=== PATIENT | male | born 1950 | race African-American/Black ===

== ENCOUNTER → 2019-10-23 | Day surgery (SDC) | payer MEDICARE, OTHER ==
--- NOTE | 2019-10-18 14:41 | Opthalmology H&P ---
Ophthalmology H&P H&P Chief Complaint: decreased vision in left eye HPI Vision Affects Ability to: read, manage personal affairs HPI Narrative Blurry vision Exam Visual Acuity: OD 20/50 OS 20/80 Tension: OD 14 OS 14 Eye Exam: normal OU: external exam, palpebral fissure-width, marginal reflex distance, levator function, corneas, anterior chambers, fundus exam; findings: lens - +3 Cortical Cataracts OU Assessment/Plan Treatment Plan: cataract extraction w/ lens implant Goals of Treatment: improvement of vision, enhance quality of life Attestation Attestation The risks and benefits of the surgery as well as alternative procedures were explained to the patient in detail. Devan Street MD Oct 18, 2019 14:41
--- NOTE | 2019-10-18 14:48 | Pre-Procedure Note/Attestation ---
Pre-Procedure Note/Attestation Complete Prior to Procedure Planned Procedure: left Procedure Narrative: Cataract extraction with intraocular lens implant left eye Indications for Procedure Pre-Operative Diagnosis: Cortical cataract left eye Attestation I attest that I discussed the nature of the procedure; its benefits; risks and complications; and alternatives (and the risks and benefits of such alternatives ), prior to the procedure, with the patient (or the patient's legal manufacturing sales representative). I attest that, if there was a reasonable possibility of needing a blood transfusion, the patient (or the patient's legal manufacturing sales representative) was given the [facility] standardized written summary, pursuant to the [place] Blood Safety Act ([place] Health and Safety Code # 1645, as amended). I attest that I re-evaluated the patient just prior to the surgery and that there has been no change in the patient's H&P, except as documented below: Devan Street MD Oct 18, 2019 14:48
[2019-10-19 08:43] LABS: HEMATOCRIT 33.8 % (42.0-52.0); HEMOGLOBIN 11.3 G/DL (14.2-18.0); MEAN CORPUSCULAR VOLUME 98 FL (80-99); PLATELET COUNT 363 K/UL (150-450); RED BLOOD COUNT 3.46 M/UL (4.70-6.10); RED CELL DISTRIBUTION WIDTH 14.9 % (11.6-14.8); WHITE BLOOD COUNT 7.4 K/UL (4.8-10.8)
[2019-10-19 08:49] LABS: INR 1.1 (0.9-1.1)
[2019-10-19 08:59] LABS: ANION GAP 9 mmol/L (5-15); BLOOD UREA NITROGEN 43 mg/dL (7-18); CALCIUM 9.5 MG/DL (8.5-10.1); CARBON DIOXIDE 35 MMOL/L (21-32); CHLORIDE 99 MMOL/L (98-107); CREATININE 7.6 MG/DL (0.55-1.30); POTASSIUM 5.6 MMOL/L (3.5-5.1); SODIUM 143 MMOL/L (136-145)
[~2019-10-23] VITALS: Ht 182.9 cm; Wt 70.5 kg
[2019-10-23] VITALS (8 sets, daily range): BP systolic 99–110; BP diastolic 60–70
[~2019-10-23] MED LIST: ACETAMINOPHEN325 M1 ORAL; ANCEF0.5 GM IM; ANCEF0.5 GM IVINF; ASPIRIN EC81 MG ORAL; ATORVASTATIN CA10 MG ORAL; ATORVASTATIN CA40 MG ORAL; Akten 3.5% 1ml Btl LEFT EYE ONE; BSS 15ml BTL ONE; BSS 500ml btl ONE; CARVEDILOL3.125 MG ORAL; CEFEPIME-D1 GM/50 ML IVPB; CLOPIDOGREL75 MG ORAL; COLACE100 MG ORAL; COREG12.5 MG ORAL; COREG25 MG ORAL; DUONEB 0.5-3(2.53 ML HHN; EPINEPHrine 1mg/1ml Amp ONE; FLOMAX0.4 MG ORAL; FUROSEMIDE20 M1 ORAL; GABAPENTIN100 MG ORAL; HEPARIN SO5000 UNIT2 SUBQ; HYDRALAZINE HCL25 M1 ORAL; HYDROCHLOROTH12.5 M2 ORAL; ISOSORBIDE MONO30 M1 ORAL; LISINOPRIL5 MG ORAL; METOPROLOL SUCC25 MG ORAL; MORPHINE 11 MG/2 ML IM; NEXIUM40 MG ORAL; NORCO 5-325 TA1 EACH ORAL; NOVOLOG100 UNITS1 SUBQ; NS Irrig 1000ml ONE; PREDNISONE20 MG ORAL; PROCRIT20000 UNI2 SUBQ; PROTONIX40 MG ORAL; Pilocarpine 1% Opth 15ml Soln ONE; Polysporin Oint 15gm TOPIC ONE; Povidone-Iodine 5% opth solution ONE; Proparacaine 0.5% Opth Soln 15ml LEFT EYE ONE; RENVELA800 MG ORAL; RESTORIL15 MG ORAL; SENSIPAR30 MG ORAL; Sodium Hyaluronate 10 mg/ml 0.85ml ONE; Sterile Water Irrig 1000ml IRRIG ONE; Tetracaine 0.5% Opth 4ml Soln LEFT EYE ONE; VANCOMYCIN1 GM/2502 IVPB; fentaNYL 100 mcg/2 mL IV ONE; fentaNYL 100 mcg/2 mL IV PRN; prednisoLONE acetate 1% Opth Susp 1ml ONE
[2019-10-23] MEDS: Phenylephrine 10% Opth Soln 5ml LEFT EYE SCH ×3 (08:11→08:36)
[2019-10-23] MEDS: Diclofenac Sod 0.1% Op Soln LEFT EYE SCH ×3 (08:12→08:36)
[2019-10-23] MEDS: Tropicamide 1% Opth 15ml Soln LEFT EYE SCH ×3 (08:12→08:36)
[2019-10-23] MEDS: Cyclopentolate 1% Opth Sol 2ml LEFT EYE SCH ×3 (08:13→08:36)
[2019-10-23] MEDS: Tobramycin Op Soln 0.3% 5ml LEFT EYE SCH ×3 (08:13→08:36)
--- NOTE | 2019-10-23 10:10 | Anethesia Preoperative Eval ---
Anesthesia Pre-op PMH/ROS General Date of Evaluation: Oct 23, 2019 Time of Evaluation: 09:42 Anesthesiologist: Sky ASA Score: ASA 3 Mallampati Score Class I : Soft palate, uvula, fauces, pillars visible Class II: Soft palate, uvula, fauces visible Class III: Soft palate, base of uvula visible Class IV: Only hard plate visible Mallampati Classification: Class III Surgeon: Yenifer Diagnosis: L eye cataract Surgical Procedure: Cataract extraction Anesthesia History: none Social History: smoking - h/o Family History: no anesthesia problems Allergies: Coded Allergies: No Known Allergies (Unverified , 10/19/19) Medications: see eMAR Patient NPO?: Yes Past Medical History Cardiovascular: Reports: HTN, CAD - no recent CP, [place] - in the past stents in place; Denies: valve dz, arrhythmia, other Pulmonary: Reports: COPD - on home O2; Denies: asthma, DOMINGUEZ, other Gastrointestinal/Genitourinary: Reports: ESRD - on HD last session Neurologic/Psychiatric: Denies: dementia, CVA, depression/anxiety, TIA, other Endocrine: Reports: DM; Denies: hypothyroidism, steroids, other HEENT: Reports: cataract (L), cataract (R) Hematology/Immune: Reports: anemia - mild; Denies: DVT, bleeding disorder, other Other: other - malnourished PMH Narrative: as above PSxH Narrative: see H&P Anesthesia Pre-op Phys. Exam Physician Exam Last Vital Signs Date Time Temp Pulse Resp B/P (MAP) Pulse Ox O2 Delivery O2 Flow Rate FiO2 10/23/19 08:32 Room Air 10/23/19 08:29 97.4 90 20 110/68 97 Constitutional: NAD Neurologic: CN 2-12 intact Cardiovascular: RRR, no M/R/G Respiratory: other - some wheezing Gastrointestinal: S/NT/ND Airway Exam Mallampati Score: Class II MO: limited Neck: stiff ROM: limited Teeth: missing Dentures: no upper, no lower Anesthesia Pre-op A/P Labs Chemistry Test 10/23/19 08:05 Potassium Level 5.3 MMOL/L (3.5-5.1) H Risk Assessment & Plan Assessment: ASA 3 Plan: MAC Status Change Before Surgery: No Pre-Antibiotics Drug: none Doug Swanson MD Oct 23, 2019 10:10
--- NOTE | 2019-10-23 10:41 | Immediate Post-Op Evaluation ---
Immediate Post-Op Evalulation Immediate Post-Op Evalulation Procedure: L eye cataract extraction with IOL Date of Evaluation: Oct 23, 2019 Time of Evaluation: 10:40 IV Fluids: 100 Blood Products: none Estimated Blood Loss: none Urinary Output: none Blood Pressure Systolic: 106 Blood Pressure Diastolic: 58 Pulse Rate: 86 Respiratory Rate: 20 O2 Sat by Pulse Oximetry: 99 Temperature (Fahrenheit): 97.6 Pain Score (1-10): 1 Nausea: No Vomiting: No Complications none Patient Status: awake, patent, none Doug Swanson MD Oct 23, 2019 10:41
--- NOTE | 2019-10-23 11:22 | 48 Hour Post Anesthesia Eval ---
Post Anesthesia Evaluation Procedure: L eye cataract extraction with IOL Date of Evaluation: Oct 23, 2019 Time of Evaluation: 11:18 Blood Pressure Systolic: 102 0: 48 Pulse Rate: 76 Respiratory Rate: 18 Temperature (Fahrenheit): 97.6 O2 Sat by Pulse Oximetry: 98 Airway: patent Nausea: No Vomiting: No Pain Intensity: 1 Hydration Status: adequate Cardiopulmonary Status: stable Mental Status/LOC: patient returned to baseline Follow-up Care/Observations: n/a Post-Anesthesia Complications: none Follow-up care needed: ready to discharge Doug Swanson MD Oct 23, 2019 11:21
--- NOTE | 2019-10-23 14:54 | Brief Operative Note ---
Immediate Post Operative Note Operative Note Chief Complaint: Blurry Vision Pre-op Diagnosis: Cortical cataract left eye Procedure: Cataract extraction with IOL implant left eye Post-op Diagnosis: Pseudophakia OS Findings: consistent w/pre-op dx studies Surgeon: Devan Street MD Anesthesiologist: Doug Swanson MD Anesthesia: MAC Specimen: none Complications: none Condition: stable Fluids: LR Estimated Blood Loss: none Drains: none Implant(s) used?: Yes - IOL-OS Devan Street MD Oct 23, 2019 14:54
--- NOTE | 2019-10-23 14:56 | Operative Note - PDOC ---
Operative Note Operative Note Date of Operation/Procedure: Oct 23, 2019 Chief Complaint: Blurry Vision Pre-op Diagnosis: Cortical cataract left eye Procedure: Cataract extraction with IOL implant left eye Post-op Diagnosis: Pseudophakia OS Operative Findings: consistent w/pre-op dx studies Surgeon: Devan Street MD Anesthesiologist: Doug Swanson MD Anesthesia: MAC Specimen: none Complications: none Condition: stable Fluids: LR Estimated Blood Loss: none Drains: none Implant(s) used?: Yes - IOL-OS Indications for Procedure Cortical cataract left eye Description of Procedure This patient has been complaining visually significant cataract in the left eye with the best corrected visual acuity of 20/80 under moderate glare conditions worse. The patient complains of difficulties with glare in performing activities of daily living and wants to manage personal affairs with comfort and accuracy and see well enough to move with safety at home and outdoors. The risks, benefits and alternatives of the procedure were discussed with the patient in the office prior to scheduling surgery. All questions from the patient were answered after the surgical procedure was explained in detail. The risks of the procedure as explained to the patient include, but are not limited to, pain, infection, bleeding, loss of vision, retinal detachment, need for further surgery, loss of lens nucleus, double vision, etc. Alternative procedures were discussed which include, to do nothing or seek a second opinion. Informed consent for this procedure was obtained from the patient. The patient was referred to a primary care physician for a cardiopulmonary clearance prior to surgery, after proper evaluation was done patient was properly scheduled for outpatient surgery. The patient was brought to the operating room where the anesthesiologist established I.V. lines and cardiac monitoring leads. Mild intravenous sedation was administered. The patient was then prepared with a 5% solution of povidone -iodine to the conjunctival fornix and lashes, and a 5% solution of povidone- iodine to the lids and periorbital skin. The patient was then draped in the usual sterile fashion. A lid speculum was then placed in the operative eye. A keratome blade was then used to create a biplanar incision into the anterior chamber. Viscoelastics was then instilled into the anterior chamber. A capsulorrhexis was then fashioned with an utrata forceps A G 27 cannula was used to hydrodissect and hydro delineate the lens nucleus. Paracentesis incision was made at 3 o'clock with sharp blade. The phacoemulsification unit, after being properly adjusted and tested, was then used to emulsify the nucleus. Residual cortical material was aspirated with the irrigation and aspiration unit. Healon was then instilled into the anterior chamber. The corneal wound was then enlarged to the size of the optic with the vee keratome blade. The intraocular lens was then inspected for right power and size and thought to be satisfactory. Then the lens was gently placed in the capsular bag. Positioning within the capsular bag was confirmed by direct visualization. Optic centration was accomplished with a Sinskey hook. Viscoelastics was removed from the anterior chamber using the irrigation and aspiration unit. The corneal wound was then tested for leaks and none were found. The lid speculum were then removed. Sponge and needle counts were correct. An eye patch and shield were placed over the operative eye. The patient was taken to the recovery room in stable condition. There were no complications. The patient tolerated the procedure well. The patient was then transferred to the ambulatory surgery unit in stable and satisfactory condition , was given detailed written instructions and asked to follow up in the office the next day. Devan Street MD Oct 23, 2019 14:56
== END | disposition home or self-care (01) ==
LOC: SUR 06:14
DX: H25.012 Cortical age-related cataract, left eye (principal); I25.10 Atherosclerotic heart disease of native coronary artery without angina pectoris; I25.2 Old myocardial infarction; I12.0 Hypertensive chronic kidney disease with stage 5 chronic kidney disease or end stage renal disease; E11.22 Type 2 diabetes mellitus with diabetic chronic kidney disease; N18.6 End stage renal disease; Z99.2 Dependence on renal dialysis; J44.9 Chronic obstructive pulmonary disease, unspecified; Z99.81 Dependence on supplemental oxygen; Z87.891 Personal history of nicotine dependence; E46 Unspecified protein-calorie malnutrition; Z68.21 Body mass index [BMI] 21.0-21.9, adult; D63.1 Anemia in chronic kidney disease
CPT/HCPCS: 36415; 66984; 80048; 84132; 85007; 85025; 85610; 85730; 93005; 94003; J0171; J1100; J2704; J3010; J3370; J7030; V2632; 94150